=== PATIENT | male | born 1980 | race Asian ===

== ENCOUNTER 2020-06-18 16:15 | Outpatient (CLI) | payer BC ==
--- NOTE | 2020-06-18 17:13 | RAD ---
LUMBAR SPINE: 06/18/20 Two views. HISTORY: Back pain. Lumbar vertebrae maintain normal height and alignment. The disc spaces are preserved. Minimal degener ative spurring. Mild facet hypertrophy at L4-5 and L5-s1. No spondylolisthesis or spondylolysis. IMPRESSION: Very mild degenerative change. POS: AGW
== END 2020-06-18 16:16 | disposition home or self-care (01) ==
LOC: SCSRAD 16:15
PROVIDERS: ATTEND Chiropractor
DX: M54.5 Low back pain (principal); M47.816 Spondylosis without myelopathy or radiculopathy, lumbar region
CPT/HCPCS: 72100